=== PATIENT | female | born 1935 | race Caucasian/White ===

== ENCOUNTER 2017-05-23 18:35 | Inpatient (IN) | payer MEDICARE ==
[~2017-05-23] VITALS: Ht 157.5 cm; Wt 100.8 kg
[2017-05-23] MEDS ORDERED: ATOR20TA PO (19:13)
[2017-05-23] MEDS ORDERED: FAMO-39 PO (19:13)
[2017-05-23] MEDS ORDERED: PARO20TA7 PO (19:13)
[2017-05-23] MEDS ORDERED: TRAM50TA2 PO (19:13)
[2017-05-23] MEDS ORDERED: METO-357 (19:13)
[2017-05-23] MEDS ORDERED: GABA-532 (19:13)
[2017-05-23] MEDS ORDERED: SITA100T (19:13)
[2017-05-23] MEDS ORDERED: METF850T2 (19:13)
[2017-05-23] MEDS ORDERED: BISM262O28 (19:13)
[2017-05-23 19:55] LABS: BASOPHILS # (AUTO) 0.1 K/uL (0.0-8.0); BASOPHILS % (AUTO) 0.7 % (0.0-2.0); EOSINOPHILS # (AUTO) 0.3 K/uL (0.0-0.7); EOSINOPHILS % (AUTO) 3.4 % (0.0-7.0); HEMATOCRIT 35.7 % (31.2-41.9); LYMPHOCYTES # (AUTO) 1.9 K/uL (20.0-40.0); LYMPHOCYTES % (AUTO) 19.1 % (20.5-51.5); MEAN CORPUSCULAR HEMOGLOBIN 30.6 uug (24.7-32.8); MEAN CORPUSCULAR HGB CONC 34 g/dL (32.3-35.6); MEAN CORPUSCULAR VOLUME 90.6 fL (75.5-95.3); MONOCYTES # (AUTO) 0.9 K/uL (2.0-10.0); MONOCYTES % (AUTO) 9.5 % (0.0-11.0); NEUTROPHILS # (AUTO) 6.7 K/uL (1.8-8.9); NEUTROPHILS % (AUTO) 67.3 % (38.5-71.5); PLATELET COUNT (AUTO) 234 K/uL (179-408); RED BLOOD CELL COUNT(AUTO) 3.94 MIL/uL (3.63-4.92); WHITE BLOOD COUNT (AUTO) 9.9 K/uL (3.8-11.8)
[2017-05-23 20:04] LABS: CARBON DIOXIDE 30 mmol/L (21-32); CHLORIDE 103 mmol/L (98-107); CREATININE 1.6 mg/dL (0.6-1.3); GLUCOSE 133 mg/dL (74-106); POTASSIUM 4.2 mmol/L (3.5-5.1); UREA NITROGEN, BLOOD 15 mg/dL (7-18)
[2017-05-23 20:10] LABS: ALANINE AMINOTRANSFERASE 17 U/L (14-59); ALKALINE PHOSPHATASE 83 U/L (50-136); ASPARTATE AMINOTRANSFERASE 18 U/L (15-37); BILIRUBIN,DIRECT 0.1 mg/dL (0.0-0.2); BILIRUBIN,TOTAL 0.4 mg/dL (0.2-1.0); TOTAL PROTEIN, SERUM 7.6 g/dL (6.4-8.2)
[2017-05-23 20:11] LABS: ACETAMINOPHEN < 2.0 ug/mL (10-30)
[2017-05-23 20:13] LABS: ETHANOL < 3 MG/DL (0-0)
--- NOTE | 2017-05-23 20:16 | NUR ---
Pt out of ER for CT
[2017-05-23 20:20] LABS: *BILIRUBIN,URIN NEGATIVE (NEGATIVE); *BLOOD, URINE 1+ (NEGATIVE); *CLARITY,URINE CLOUDY (CLEAR); *COLOR,URINE YELLOW (YELLOW); *KETONES,URINE NEGATIVE (NEGATIVE); *PROTEIN,URINE NEGATIVE (NEGATIVE); *UROBILINOGEN,URINE 0.2 E.U./dl (NORMAL); LEUKOCYTE ESTERASE ,URINE TRACE (NEGATIVE); NITRITE, URINE NEGATIVE (NEGATIVE); UGLUCOSE NEGATIVE (NEGATIVE)
[2017-05-23] MEDS ORDERED: FLUCONAZOLE 100 MG TABLET PO ONE (20:30)
--- NOTE | 2017-05-23 20:31 | NUR ---
Pt back to ER from CT
[2017-05-23 20:34] LABS: BACTERIA,URINE FEW /HPF (NONE SEEN); SQUAMOUS EPITHELIAL CELL,UR MANY /HPF (NONE SEEN); URINE AMORPHOUS URATE MODERATE /HPF
[2017-05-23 20:35] LABS: MUCUS,URINE MODERATE /LPF (0-FEW)
[2017-05-23 20:37] LABS: *AMPHETAMINE, URINE NEGATIVE (NEGATIVE); *BARBITURATE, URINE NEGATIVE (NEGATIVE); *CANNABINOID, URINE NEGATIVE (NEGATIVE); *COCCAINE, URINE NEGATIVE (NEGATIVE); *OPIATE, URINE NEGATIVE (NEGATIVE); *PHENCYCLIDINE SCREEN,URINE NEGATIVE (NEGATIVE)
[2017-05-23 21:00] LABS: THYROID STIMULATING HORMONE 2.786 mIU/mL (0.358-3.740)
[2017-05-23] MEDS ORDERED: FLUCONAZOLE 100 MG TABLET ONE (21:19)
[2017-05-23] MEDS ORDERED: IV NORMAL SALINE 1000 ML BAG IV ONE (21:30)
[2017-05-23] MEDS ORDERED: GENTAMICIN SULFATE INJ 80 MG in IV DEXTROSE 5% 100 ML IV ONE (21:30)
[2017-05-23] MEDS ORDERED: LEVOFLOXACIN 500 MG/D5W 100ML PIGGYBACK IV ONE (21:30)
[2017-05-23] MEDS ORDERED: LEVOFLOXACIN 500 MG/D5W 100 ML ONE (21:57)
[2017-05-23] MEDS ORDERED: GENTAMICIN SULFATE 80 MG/2 ML VIAL ONE (21:59)
--- NOTE | 2017-05-23 23:52 | NUR ---
[facility]
[2017-05-24] MEDS ORDERED: hydrALAZINE HCL 25 MG TABLET PO PRN
[2017-05-24] MEDS ORDERED: INSULIN REGULAR, HUMAN 300 UNIT/3 ML VIAL SQ PRN
[2017-05-24] MEDS ORDERED: MORPHINE SULFATE 4 MG/1 ML DISP.SYRIN IV PRN
[2017-05-24] MEDS ORDERED: TEMAZEPAM 15 MG CAPSULE PO PRN
[2017-05-24] MEDS ORDERED: ONDANSETRON 4 MG/2 ML VIAL IV PRN
--- NOTE | 2017-05-24 | NUR ---
Received pt to [facility]. A&O x2. Pt needs extensive 2 person assist to get into bed. Diaper changed. Redness to the groin noted and 2+ bilateral ankle edema noted. Patient offered food and drink as she states she hasn't eaten for hours. Oriented pt to unit and use of call light. Bed locked and in low position with call light within reach. Will continue to monitor.
[2017-05-24] MEDS ORDERED: ZIPRASIDONE MESYLATE 20 MG VIAL IM PRN (00:15)
[2017-05-24] MEDS ORDERED: BISACODYL 10 MG SUPP.RECT RC PRN (00:15)
[2017-05-24 00:30] VITALS: BP 149/54
[2017-05-24 06:00] VITALS: BP 130/54
[2017-05-24 06:44] LABS: BASOPHILS # (AUTO) 0.1 K/uL (0.0-8.0); BASOPHILS % (AUTO) 0.7 % (0.0-2.0); EOSINOPHILS # (AUTO) 0.3 K/uL (0.0-0.7); EOSINOPHILS % (AUTO) 3.6 % (0.0-7.0); HEMATOCRIT 31.5 % (31.2-41.9); HEMOGLOBIN 10.6 g/dL (10.9-14.3); LYMPHOCYTES # (AUTO) 1.4 K/uL (20.0-40.0); LYMPHOCYTES % (AUTO) 16.3 % (20.5-51.5); MEAN CORPUSCULAR HEMOGLOBIN 30.4 uug (24.7-32.8); MEAN CORPUSCULAR HGB CONC 34 g/dL (32.3-35.6); MEAN CORPUSCULAR VOLUME 90.3 fL (75.5-95.3); MONOCYTES # (AUTO) 0.8 K/uL (2.0-10.0); MONOCYTES % (AUTO) 9.1 % (0.0-11.0); NEUTROPHILS # (AUTO) 5.9 K/uL (1.8-8.9); NEUTROPHILS % (AUTO) 70.3 % (38.5-71.5); PLATELET COUNT (AUTO) 207 K/uL (179-408); RED BLOOD CELL COUNT(AUTO) 3.49 MIL/uL (3.63-4.92); WHITE BLOOD COUNT (AUTO) 8.4 K/uL (3.8-11.8)
[2017-05-24] MEDS: BLOOD SUGAR DIAGNOSTIC 1 EACH STRIP VI SCH ×4 (07:30→21:37)
[2017-05-24 08:02] LABS: ALANINE AMINOTRANSFERASE 14 U/L (14-59); ALKALINE PHOSPHATASE 66 U/L (50-136); ASPARTATE AMINOTRANSFERASE 15 U/L (15-37); BILIRUBIN,TOTAL 0.3 mg/dL (0.2-1.0); CARBON DIOXIDE 30 mmol/L (21-32); CHLORIDE 106 mmol/L (98-107); CREATININE 1.5 mg/dL (0.6-1.3); GLUCOSE 175 mg/dL (74-106); MAGNESIUM 1.5 mg/dL (1.8-2.4); PHOSPHOROUS 2.9 mg/dL (2.5-4.9); POTASSIUM 3.8 mmol/L (3.5-5.1); TOTAL PROTEIN, SERUM 6.2 g/dL (6.4-8.2); UREA NITROGEN, BLOOD 14 mg/dL (7-18)
[2017-05-24 08:46] LABS: CHOLESTEROL 104 mg/dL (<200); HDL CHOLESTEROL 34 mg/dL (40-60); TRIGLYCERIDES 117 MG/DL (30-150)
[2017-05-24] MEDS ORDERED: GABAPENTIN 100 MG CAPSULE PO ONE (09:00)
[2017-05-24] MEDS: FAMOTIDINE 20 MG TABLET PO SCH (09:29)
[2017-05-24] MEDS: FUROSEMIDE 20 MG/2 ML VIAL IV SCH (09:29)
[2017-05-24] MEDS: SITAGLIPTIN PHOSPHATE 50 MG TABLET PO SCH (09:30)
[2017-05-24] MEDS: PAROXETINE HCL 20 MG TABLET PO SCH (09:30)
[2017-05-24] MEDS: METOPROLOL TARTRATE 50 MG TABLET PO SCH ×2 (09:35→21:27)
[2017-05-24] MEDS ORDERED: MAGNESIUM SULFATE/D5W 100 ML IV SCH (10:15)
[2017-05-24 11:59] VITALS: BP 110/39
[2017-05-24 12:34] LABS: IRON, SERUM 49 ug/dL (50-175)
[2017-05-24] MEDS: LEVOFLOXACIN 250MG /D5W 250 MG in PREMIXED 1 EACH IV SCH (14:37)
[2017-05-24] MEDS ORDERED: DEXTROSE 50% 50 ML DISP.SYRIN IV PRN ×2 (15:00)
[2017-05-24 15:33] VITALS: BP 128/41
[2017-05-24] MEDS: GABAPENTIN 100 MG CAPSULE PO SCH (17:22)
--- NOTE | 2017-05-24 18:41 | NUR ---
PATIENT ALERT AND ORIENTED. BEDREST AND OBESE. SHE ABLE TO FOLLOW THE INSTRUCTION. SHE HAS REDNESS IN GROIN PERINEAL AREA CREAM APPLIED. BOTH LEG ELEVATED WITH PILLOW WITH BOTH LOWER LEG EDEMA +2. NO SIGN OF RESPIRATORY DISORDER. CONTINUE TO MONITOR.
--- NOTE | 2017-05-24 19:30 | NUR ---
PT RECEIVED IN BED, ASLEEP. WAKES TO NAME. A/OX2. ABLE TO MAKE NEEDS KNOWN. V/S STABLE. IN NO ACUTE DISTRESS. NO C/O PAIN AT THIS TIME. IV INTACT AND PATENT. ON 2LNC, TOLERATING WELL. LOWER EXTREMITIES ELEVATED, OFFLOADING BILATERAL HEELS. AFEBRILE. HOB ELEVATED. SAFETY MEASURES IMPLEMENTED. CALL LIGHT WITHIN REACH.
[2017-05-24 20:00] VITALS: BP 132/55
[2017-05-24] MEDS ORDERED: DOCUSATE SODIUM 250 MG CAPSULE PO SCH (21:00)
[2017-05-24] MEDS: ATORVASTATIN 20 MG TABLET PO SCH (21:26)
[2017-05-24] MEDS: TRAZODONE 50 MG TABLET PO SCH (21:26)
[2017-05-24] MEDS: INSULIN REGULAR, HUMAN 300 UNITS/3 ML VIAL SQ PRN (21:39)
[2017-05-25 04:00] VITALS: BP 131/61
--- NOTE | 2017-05-25 05:45 | NUR ---
END OF SHIFT NOTES. PT SLEPT WELL THROUGHOUT SHIFT. IN STABLE CONDITION. IV CONT TO BE INTACT AND PATENT, HEP-LOCKED. BILATERAL LOWER EXTREMITIES ELEVATED ON PILLOW. BLOOD GLUCOSE CONTROLLED. TOLERATED RA WELL.HOB ELEVATED.ALL NEEDS ATTENDED.SAFETY MAINTAINED. CALL LIGHT WITHIN REACH.
[2017-05-25] MEDS: BLOOD SUGAR DIAGNOSTIC 1 EACH STRIP VI SCH ×4 (06:15→21:10)
[2017-05-25 07:19] LABS: ALANINE AMINOTRANSFERASE 16 U/L (14-59); ALKALINE PHOSPHATASE 66 U/L (50-136); ASPARTATE AMINOTRANSFERASE 19 U/L (15-37); BILIRUBIN,TOTAL 0.3 mg/dL (0.2-1.0); CARBON DIOXIDE 33 mmol/L (21-32); CHLORIDE 106 mmol/L (98-107); CREATININE 1.4 mg/dL (0.6-1.3); GLUCOSE 113 mg/dL (74-106); MAGNESIUM 1.8 mg/dL (1.8-2.4); PHOSPHOROUS 3.9 mg/dL (2.5-4.9); POTASSIUM 3.9 mmol/L (3.5-5.1); TOTAL PROTEIN, SERUM 6.5 g/dL (6.4-8.2); UREA NITROGEN, BLOOD 13 mg/dL (7-18)
[2017-05-25 07:48] LABS: BASOPHILS # (AUTO) 0.1 K/uL (0.0-8.0); BASOPHILS % (AUTO) 0.9 % (0.0-2.0); EOSINOPHILS # (AUTO) 0.3 K/uL (0.0-0.7); EOSINOPHILS % (AUTO) 3.6 % (0.0-7.0); HEMATOCRIT 33.2 % (31.2-41.9); HEMOGLOBIN 11.1 g/dL (10.9-14.3); LYMPHOCYTES % (AUTO) 24.9 % (20.5-51.5); MEAN CORPUSCULAR HEMOGLOBIN 30.4 uug (24.7-32.8); MEAN CORPUSCULAR HGB CONC 34 g/dL (32.3-35.6); MEAN CORPUSCULAR VOLUME 90.9 fL (75.5-95.3); MONOCYTES # (AUTO) 0.8 K/uL (2.0-10.0); MONOCYTES % (AUTO) 9.4 % (0.0-11.0); NEUTROPHILS % (AUTO) 61.2 % (38.5-71.5); PLATELET COUNT (AUTO) 199 K/uL (179-408); RED BLOOD CELL COUNT(AUTO) 3.65 MIL/uL (3.63-4.92); WHITE BLOOD COUNT (AUTO) 8.1 K/uL (3.8-11.8)
[2017-05-25] MEDS: GABAPENTIN 100 MG CAPSULE PO SCH ×3 (09:20→17:04)
[2017-05-25] MEDS: FAMOTIDINE 20 MG TABLET PO SCH (09:20)
[2017-05-25] MEDS: SITAGLIPTIN PHOSPHATE 50 MG TABLET PO SCH (09:21)
[2017-05-25] MEDS: PAROXETINE HCL 20 MG TABLET PO SCH (09:21)
[2017-05-25] MEDS: FUROSEMIDE 20 MG/2 ML VIAL IV SCH (09:21)
[2017-05-25] MEDS: LEVOFLOXACIN 250MG /D5W 250 MG in PREMIXED 1 EACH IV SCH (09:21)
[2017-05-25] MEDS: METOPROLOL TARTRATE 50 MG TABLET PO SCH ×2 (09:21→20:17)
[2017-05-25 11:04] VITALS: BP 104/40
[2017-05-25] MEDS: INSULIN REGULAR, HUMAN 300 UNITS/3 ML VIAL SQ PRN ×2 (11:52→21:11)
--- NOTE | 2017-05-25 13:42 | NUR ---
PT IS LETHARGIC AND UNABLE TO TAKE MEDICATIONS AT THIS TIME. CONTINUE TO MONITOR PT.
[2017-05-25 13:58] LABS: *BILIRUBIN,URIN NEGATIVE (NEGATIVE); *BLOOD, URINE Trace-intact (NEGATIVE); *CLARITY,URINE CLEAR (CLEAR); *COLOR,URINE LIGHT YELLOW (YELLOW); *KETONES,URINE NEGATIVE (NEGATIVE); *PROTEIN,URINE NEGATIVE (NEGATIVE); *URINE TOTAL PROTEIN RANDOM 7.1 mg/dL (<150/24HR); *UROBILINOGEN,URINE 0.2 E.U./dl (NORMAL); LEUKOCYTE ESTERASE ,URINE NEGATIVE (NEGATIVE); NITRITE, URINE NEGATIVE (NEGATIVE); PH,URINE 5.5 (5.0-8.0); UGLUCOSE NEGATIVE (NEGATIVE)
[2017-05-25 14:09] LABS: *CREATININE,URINE < 13.0 mg/dL (30-125)
[2017-05-25 14:11] LABS: BACTERIA,URINE FEW /HPF (NONE SEEN); RBC,URINE 0-3 /HPF (0-3); SQUAMOUS EPITHELIAL CELL,UR MODERATE /HPF (NONE SEEN); WBC,URINE 0-3 /HPF (0-3)
[2017-05-25] MEDS ORDERED: TEMAZEPAM 7.5 MG CAPSULE PO PRN (14:30)
[2017-05-25 15:03] VITALS: BP 95/49
--- NOTE | 2017-05-25 18:11 | NUR ---
PT IS AOX2, DURING THE BEGINNING OF SHIFT PT WAS AOX4. PT BECOMES CONFUSED NEAR THE END OF THE DAY. PT LAST BLOOD SUGAR WAS 101, NO COVERAGE NEEDED. PT IS COMPLIANT WITH MEDS AND CARE. BED AT LOWEST LOCKED POSITION. PT ENCOURAGED TO USE CALL LIGHT WHEN SHE NEEDS TO AMBULATE AND GO TO THE REST ROOM. PT IS AGREEABLE WITH REQUEST. IV INTACT, NO SIGNS OF RESPIRATORY DISTRESS. CONTINUE TO MONITOR PATIENT.
--- NOTE | 2017-05-25 19:20 | NUR ---
RECEIVED PT AWAKE, ALERT , ORIENTED X2. PT IV INTACT AND PATENT. PT TRYING TO GET OUT OF THE BED. REORIENT THE PT THAT SHE IS IN THE HOSPITAL . PT AWARE OF IT. PT SHOWS NO SIGNS OF DISTRESS. WILL CONTINUE TO MONITOR.
[2017-05-25 20:00] VITALS: BP 100/44
[2017-05-25] MEDS: TRAZODONE 50 MG TABLET PO SCH (20:07)
[2017-05-25] MEDS: DOCUSATE SODIUM 250 MG CAPSULE PO SCH (20:07)
[2017-05-25] MEDS: ATORVASTATIN 20 MG TABLET PO SCH (20:15)
--- NOTE | 2017-05-25 21:30 | NUR ---
PT CALLED HIS SON. TALKED WITH HIS SON AND GAVE UPDATE TO HER MOTHER'S CONDITION. HER SON REQUEST THAT HER MOTHER WILL BE SEEN AGAIN BY THE PSYCHIATRIST. PT BLOOD SUGAR LEVEL IS 136 GAVE 2 UNITS OF INSULIN. PT ALERT, ORIENTEDX4. GAVE MEDICATION TO PT. PT TOLERATED IT WELL.GAVE URINE SAMPLE TO THE LAB. WILL CONTINUE TO MONITOR.
--- NOTE | 2017-05-25 21:31 | NUR ---
LOPRESSOR MEDICATION WAS NOT ADMINISTERED BECAUSE BLOOD PRESSURE WAS 100/44. OTHER MEDICATION GIVEN. PT TOLERATED IT WELL. WILL CONTINUE TO MONITOR.
--- NOTE | 2017-05-25 23:07 | NUR ---
GAVE SNACK TO PT. PT ATE THE CRACKER AND DRANK THE MILK. WILL CONTINUE TO MONITOR.
[2017-05-26] MEDS: BLOOD SUGAR DIAGNOSTIC 1 EACH STRIP VI SCH ×4 (06:42→20:31)
[2017-05-26 06:43] LABS: BASOPHILS # (AUTO) 0.1 K/uL (0.0-8.0); BASOPHILS % (AUTO) 0.9 % (0.0-2.0); EOSINOPHILS # (AUTO) 0.3 K/uL (0.0-0.7); EOSINOPHILS % (AUTO) 4.3 % (0.0-7.0); HEMATOCRIT 33.6 % (31.2-41.9); HEMOGLOBIN 11.1 g/dL (10.9-14.3); LYMPHOCYTES # (AUTO) 1.8 K/uL (20.0-40.0); LYMPHOCYTES % (AUTO) 22.6 % (20.5-51.5); MEAN CORPUSCULAR HEMOGLOBIN 30.3 uug (24.7-32.8); MEAN CORPUSCULAR HGB CONC 33 g/dL (32.3-35.6); MEAN CORPUSCULAR VOLUME 91.4 fL (75.5-95.3); MONOCYTES # (AUTO) 0.8 K/uL (2.0-10.0); MONOCYTES % (AUTO) 9.7 % (0.0-11.0); NEUTROPHILS # (AUTO) 4.9 K/uL (1.8-8.9); NEUTROPHILS % (AUTO) 62.5 % (38.5-71.5); PLATELET COUNT (AUTO) 219 K/uL (179-408); RED BLOOD CELL COUNT(AUTO) 3.67 MIL/uL (3.63-4.92); WHITE BLOOD COUNT (AUTO) 7.8 K/uL (3.8-11.8)
--- NOTE | 2017-05-26 06:47 | NUR ---
PT SLEPT THROUGHOUT THE SHIFT. PT SHOWS NO SIGNS OF DISTRESS. PT IV INTACT AND PATENT.ALL PRESCRIBED MEDICATION GIVEN. PT TOLERATED IT WELL. SAFETY AND COMFORT PROVIDED. CONTINUE CARE OF PLAN. WILL ENDORSE TO DAYSHIFT NURSE.
[2017-05-26 06:50] VITALS: BP 128/39
--- NOTE | 2017-05-26 06:50 | NUR ---
WILL NEED TO FOLLOWUP ON THE CODE STATUS OF THE PT TO [facility]. WILL ENDORSE TO DAYSHIFT NURSE.
[2017-05-26 07:41] LABS: ALANINE AMINOTRANSFERASE 18 U/L (14-59); ALKALINE PHOSPHATASE 66 U/L (50-136); ASPARTATE AMINOTRANSFERASE 20 U/L (15-37); BILIRUBIN,TOTAL 0.3 mg/dL (0.2-1.0); CARBON DIOXIDE 33 mmol/L (21-32); CHLORIDE 103 mmol/L (98-107); CREATINE KINASE, TOTAL 33 U/L (26-192); CREATININE 1.3 mg/dL (0.6-1.3); GLUCOSE 120 mg/dL (74-106); MAGNESIUM 1.7 mg/dL (1.8-2.4); PHOSPHOROUS 3.8 mg/dL (2.5-4.9); POTASSIUM 3.6 mmol/L (3.5-5.1); TOTAL PROTEIN, SERUM 6.7 g/dL (6.4-8.2)
--- NOTE | 2017-05-26 08:00 | NUR ---
AWAKE COOPERATE WELL NO ACUTE DISTRESS NO PAIN ON ASPIRATION AND FALL PRECAUTION BED ALARM ON AND CALL LIGHT IN REACH
[2017-05-26 08:15] LABS: UREA NITROGEN, BLOOD 16 mg/dL (7-18)
[2017-05-26] MEDS: GABAPENTIN 100 MG CAPSULE PO SCH ×3 (08:40→16:59)
[2017-05-26] MEDS: ACETAMINOPHEN 325 MG TABLET PO PRN (08:40)
[2017-05-26] MEDS: SITAGLIPTIN PHOSPHATE 50 MG TABLET PO SCH (08:40)
[2017-05-26] MEDS: PAROXETINE HCL 20 MG TABLET PO SCH (08:40)
[2017-05-26] MEDS: FAMOTIDINE 20 MG TABLET PO SCH (08:40)
[2017-05-26] MEDS: METOPROLOL TARTRATE 50 MG TABLET PO SCH ×2 (08:40→20:31)
[2017-05-26] MEDS: LEVOFLOXACIN 250MG /D5W 250 MG in PREMIXED 1 EACH IV SCH (08:41)
--- NOTE | 2017-05-26 10:00 | NUR ---
DR CONNOR AND AN THOMASON,A SEEN PATIENT AND LAB RESULT THIS AM NEW MEDICATION WAS ORDER URINE C&S WAS VRE+ PUT PATIENT ON CONTACT ISOLATION AND WAS NOTIFY
[2017-05-26] MEDS ORDERED: MAGNESIUM SULFATE/D5W 100 ML IV SCH ×2 (11:00→12:00)
--- NOTE | 2017-05-26 11:00 | NUR ---
C/O OF CONSTIPATION MATTRESS PACKER Elizabeth THOMASON WAS NOTIFY AND MEDICATION PRN FOR CONSTIPATION GIVEN ORDER
[2017-05-26 11:20] VITALS: BP 105/43
[2017-05-26] MEDS ORDERED: MAGNESIUM HYDROXIDE 30 ML LIQUID UDC PO PRN (11:45)
[2017-05-26] MEDS: NITROFURANTOIN/NITROFURAN MAC 100 MG CAPSULE PO SCH ×2 (11:53→20:18)
[2017-05-26] MEDS: INSULIN REGULAR, HUMAN 300 UNIT/3 ML VIAL SQ PRN ×2 (11:56→16:48)
[2017-05-26] MEDS: DOCUSATE SODIUM 100 MG CAPSULE PO SCH ×2 (11:59→20:19)
--- NOTE | 2017-05-26 13:00 | NUR ---
EAT LUNCH WELL FAMILY SON AT BEDSIDE NO HALLUCIANATION OR AGITATION AT THIS TIME
[2017-05-26 15:07] VITALS: BP 107/47
--- NOTE | 2017-05-26 16:45 | NUR ---
NO BM TODAY AFTER MOM GIVEN DULCOLAX SUPP GIVEN AT THIS TIME KYLEE PROCEDURE WELL
--- NOTE | 2017-05-26 17:45 | NUR ---
HEMODYNAMIC STATUS STABLE NO ACUTE DISTRESS PAIN UNDER CONTROL SAFETY MEASURE PROVIDED CALL LIGHT IN REACH
--- NOTE | 2017-05-26 19:15 | NUR ---
Received pt awake, alert and orientedx3. Pt shows no signs of distress. Pt iv intact and patent. Call light within reach. Pt on contact isolation for VRE. The code status of the pt still need to confirm with [facility]. Will continue to monitor.
[2017-05-26 20:11] LABS: *OCCULT BLOOD STOOL NEGATIVE (NEGATIVE)
[2017-05-26] MEDS: DOCUSATE SODIUM 250 MG CAPSULE PO SCH (20:18)
[2017-05-26] MEDS: TRAZODONE 50 MG TABLET PO SCH (20:18)
[2017-05-26] MEDS: INSULIN REGULAR, HUMAN 300 UNITS/3 ML VIAL SQ PRN (20:28)
[2017-05-26] MEDS: ATORVASTATIN 20 MG TABLET PO SCH (20:40)
[2017-05-26] MEDS: Z GUARD REMEDY PASTE 57 GM TUBE TOP SCH (20:41)
[2017-05-26 20:55] VITALS: BP 146/90
[2017-05-27 04:00] VITALS: BP 130/73
--- NOTE | 2017-05-27 06:40 | NUR ---
PT SLEPT THROUGHOUT THE SHIFT. PT SHOWS NO SIGNS OF DISTRESS. PT IV AND INTACT AND PATENT. ALL MEDICATION GIVEN. PT TOLERATED IT WELL. CALL LIGHT WITHIN REACH. SAFETY AND COMFORT PROVIDED. CONTINUE CARE OF PLAN.WILL ENDORSE TO DAYSHIFT NURSE.
[2017-05-27] MEDS: BLOOD SUGAR DIAGNOSTIC 1 EACH STRIP VI SCH ×4 (06:43→21:04)
[2017-05-27 07:07] LABS: BASOPHILS # (AUTO) 0.1 K/uL (0.0-8.0); BASOPHILS % (AUTO) 0.7 % (0.0-2.0); EOSINOPHILS # (AUTO) 0.4 K/uL (0.0-0.7); EOSINOPHILS % (AUTO) 4.9 % (0.0-7.0); HEMATOCRIT 32.7 % (31.2-41.9); HEMOGLOBIN 10.9 g/dL (10.9-14.3); LYMPHOCYTES # (AUTO) 1.8 K/uL (20.0-40.0); LYMPHOCYTES % (AUTO) 23.1 % (20.5-51.5); MEAN CORPUSCULAR HEMOGLOBIN 30.4 uug (24.7-32.8); MEAN CORPUSCULAR HGB CONC 33 g/dL (32.3-35.6); MEAN CORPUSCULAR VOLUME 91.2 fL (75.5-95.3); MONOCYTES # (AUTO) 0.8 K/uL (2.0-10.0); MONOCYTES % (AUTO) 10.2 % (0.0-11.0); NEUTROPHILS # (AUTO) 4.9 K/uL (1.8-8.9); NEUTROPHILS % (AUTO) 61.1 % (38.5-71.5); PLATELET COUNT (AUTO) 214 K/uL (179-408); RED BLOOD CELL COUNT(AUTO) 3.59 MIL/uL (3.63-4.92)
[2017-05-27 07:34] LABS: ALANINE AMINOTRANSFERASE 15 U/L (14-59); ALKALINE PHOSPHATASE 61 U/L (50-136); ASPARTATE AMINOTRANSFERASE 18 U/L (15-37); BILIRUBIN,TOTAL 0.2 mg/dL (0.2-1.0); CARBON DIOXIDE 33 mmol/L (21-32); CHLORIDE 107 mmol/L (98-107); CREATININE 1.4 mg/dL (0.6-1.3); GLUCOSE 113 mg/dL (74-106); PHOSPHOROUS 3.9 mg/dL (2.5-4.9); POTASSIUM 4.1 mmol/L (3.5-5.1); TOTAL PROTEIN, SERUM 6.2 g/dL (6.4-8.2); UREA NITROGEN, BLOOD 16 mg/dL (7-18)
--- NOTE | 2017-05-27 08:00 | NUR ---
AWAKE COOPERATE SOME FORGETFUL BUT ABLE TO FOLLOW SIMPLE DIRECTION WELL NO ACUTE DISTRESS NO PAIN ON FALL AND ASPIRATION PRECAUTION BED ALARM ON AND CALL LIGHT IN REACH
[2017-05-27] MEDS: Z GUARD REMEDY PASTE 57 GM TUBE TOP SCH ×2 (08:36→21:03)
[2017-05-27] MEDS: GABAPENTIN 100 MG CAPSULE PO SCH ×3 (08:37→17:06)
[2017-05-27] MEDS: METOPROLOL TARTRATE 50 MG TABLET PO SCH ×2 (08:37→20:59)
[2017-05-27] MEDS: NITROFURANTOIN/NITROFURAN MAC 100 MG CAPSULE PO SCH ×2 (08:37→20:59)
[2017-05-27] MEDS: PAROXETINE HCL 20 MG TABLET PO SCH (08:37)
[2017-05-27] MEDS: ACETAMINOPHEN 325 MG TABLET PO PRN (08:37)
[2017-05-27] MEDS: FAMOTIDINE 20 MG TABLET PO SCH (08:37)
[2017-05-27] MEDS: DOCUSATE SODIUM 100 MG CAPSULE PO SCH ×2 (08:37→20:59)
[2017-05-27] MEDS: SITAGLIPTIN PHOSPHATE 50 MG TABLET PO SCH (08:39)
--- NOTE | 2017-05-27 10:00 | NUR ---
DR CONNOR AND AN THOMASON,A SEEN PATIENT AND LAB RESULT NO NEW ORDER
[2017-05-27 11:38] VITALS: BP 109/43
[2017-05-27] MEDS: INSULIN REGULAR, HUMAN 300 UNIT/3 ML VIAL SQ PRN ×2 (12:41→17:09)
[2017-05-27 15:38] VITALS: BP 138/55
--- NOTE | 2017-05-27 15:45 | NUR ---
CRISIS TEAM CAME TO [place] REGARDING PATIENT SON REQUEST AND PUT PATIENT ON 72 HR HOLD START TODAY AT 1605PM
--- NOTE | 2017-05-27 17:30 | NUR ---
RESTING QUIET NO HALLUCIANATION OR AGITATION COOPERATE WELL NO ACUTE DISTRESS PAIN UNDER CONTROL SAFETY MEASURE PROVIDED CALL LIGHT IN REACH AND BED ALARM ON
[2017-05-27 20:00] VITALS: BP 125/55
--- NOTE | 2017-05-27 20:00 | NUR ---
RECEIVED PATIENT AWAKE IN BED, SHE'S AOX2 WITH CONFUSION. SHE DENIES PAIN OR ANY DISCOMFORT, NO RESPIRATORY DISTRESS. SHE DENIES ANY SUICIDAL THOUGHTS OR ANY HALLUCINATIONS AT PRESENT. SEATER REMAINS AT BEDSIDE WITH CLOSE MONITORING, SAFETY MEASURES IN PLACE
[2017-05-27] MEDS: TRAZODONE 50 MG TABLET PO SCH (20:58)
[2017-05-27] MEDS: ATORVASTATIN 20 MG TABLET PO SCH (20:59)
[2017-05-28 04:00] VITALS: BP 143/62
[2017-05-28 04:15] VITALS: BP 139/63
--- NOTE | 2017-05-28 06:18 | NUR ---
PATIENT SLEPT WELL THROUGH THE SHIFT, NO C/O PAIN OR ANY DISTRESS. DENIED SUICIDAL THOUGHTS OR HEARING HALLUCINATIONS ON THIS SHIFT. PATIENT WITH CONFUSION BUT ABLE TO REDIRECT. SEATER REMAINS AT BEDSIDE. SAFETY MEASURES MAINTAINED AT ALL TIMES
[2017-05-28] MEDS: BLOOD SUGAR DIAGNOSTIC 1 EACH STRIP VI SCH ×3 (06:31→16:25)
[2017-05-28 06:37] LABS: BASOPHILS # (AUTO) 0.1 K/uL (0.0-8.0); BASOPHILS % (AUTO) 0.7 % (0.0-2.0); EOSINOPHILS # (AUTO) 0.3 K/uL (0.0-0.7); EOSINOPHILS % (AUTO) 4.1 % (0.0-7.0); HEMATOCRIT 32.1 % (31.2-41.9); HEMOGLOBIN 10.6 g/dL (10.9-14.3); LYMPHOCYTES # (AUTO) 1.5 K/uL (20.0-40.0); LYMPHOCYTES % (AUTO) 19.3 % (20.5-51.5); MEAN CORPUSCULAR HEMOGLOBIN 30.2 uug (24.7-32.8); MEAN CORPUSCULAR HGB CONC 33 g/dL (32.3-35.6); MEAN CORPUSCULAR VOLUME 91.2 fL (75.5-95.3); MONOCYTES # (AUTO) 0.6 K/uL (2.0-10.0); MONOCYTES % (AUTO) 7.9 % (0.0-11.0); NEUTROPHILS # (AUTO) 5.2 K/uL (1.8-8.9); PLATELET COUNT (AUTO) 215 K/uL (179-408); RED BLOOD CELL COUNT(AUTO) 3.52 MIL/uL (3.63-4.92); WHITE BLOOD COUNT (AUTO) 7.7 K/uL (3.8-11.8)
[2017-05-28 06:44] VITALS: BP 143/62
[2017-05-28 06:53] LABS: ALANINE AMINOTRANSFERASE 16 U/L (14-59); ALKALINE PHOSPHATASE 60 U/L (50-136); ASPARTATE AMINOTRANSFERASE 18 U/L (15-37); BILIRUBIN,TOTAL 0.2 mg/dL (0.2-1.0); CARBON DIOXIDE 29 mmol/L (21-32); CHLORIDE 104 mmol/L (98-107); CREATININE 1.5 mg/dL (0.6-1.3); GLUCOSE 179 mg/dL (74-106); PHOSPHOROUS 3.2 mg/dL (2.5-4.9); POTASSIUM 3.7 mmol/L (3.5-5.1); UREA NITROGEN, BLOOD 18 mg/dL (7-18)
[2017-05-28] MEDS: INSULIN REGULAR, HUMAN 300 UNIT/3 ML VIAL SQ PRN ×3 (08:07→16:24)
[2017-05-28] MEDS: PAROXETINE HCL 20 MG TABLET PO SCH (08:08)
[2017-05-28] MEDS: DOCUSATE SODIUM 100 MG CAPSULE PO SCH (08:08)
[2017-05-28] MEDS: GABAPENTIN 100 MG CAPSULE PO SCH ×3 (08:08→16:12)
[2017-05-28] MEDS: NITROFURANTOIN/NITROFURAN MAC 100 MG CAPSULE PO SCH (08:08)
[2017-05-28] MEDS: FAMOTIDINE 20 MG TABLET PO SCH (08:08)
[2017-05-28] MEDS: METOPROLOL TARTRATE 50 MG TABLET PO SCH (08:09)
[2017-05-28] MEDS: SITAGLIPTIN PHOSPHATE 50 MG TABLET PO SCH (08:09)
--- NOTE | 2017-05-28 08:15 | NUR ---
RECEIVED PATIENT IN BED AWAKE ALERT AND VERBALLY RESPONSIVE PATIENT IS FEEDING SELF AT THIS TIME.DENIES PAIN DISCOMFORTS DENIES SUICIDAL IDEATION COMPLIANT WITH MEDICATIONS AND CARE AND WILL CONTINUE TO OBSERVE.
--- NOTE | 2017-05-28 08:50 | NUR ---
DR SOUSA HERE TO SEE PATIENT WITH NEW ORDERS AND NOTED.
[2017-05-28] MEDS: Z GUARD REMEDY PASTE 57 GM TUBE TOP SCH (09:18)
[2017-05-28 13:07] LABS: A/G RATIO 0.9 (0.7-1.7); ALBUMIN 2.7 g/dL (2.9-4.4); ALPHA-1-GLOBULIN 0.2 g/dL (0.0-0.4); BETA GLOBULIN 0.8 g/dL (0.7-1.3); GAMMA GLOBULIN 1.1 g/dL (0.4-1.8); GLOBULIN, TOTAL 3.1 g/dL (2.2-3.9); M-SPIKE 0.4 g/dL (Not Observed)
[2017-05-28] MEDS ORDERED: METO50TA16 PO (13:49)
[2017-05-28] MEDS ORDERED: SITA50TA PO (13:49)
[2017-05-28] MEDS ORDERED: GABA-532 PO (13:49)
[2017-05-28] MEDS ORDERED: PARO20TA7 PO (13:49)
[2017-05-28] MEDS ORDERED: INSU100V28 SQ ×2 (13:49)
[2017-05-28] MEDS ORDERED: MAGN400O6 PO (13:49)
[2017-05-28] MEDS ORDERED: HYDR25TA86 PO (13:49)
[2017-05-28] MEDS ORDERED: DOCU100C36 PO (13:49)
[2017-05-28] MEDS ORDERED: ZIPR20VI IM (13:49)
[2017-05-28] MEDS ORDERED: FAMO20TA8 PO (13:49)
[2017-05-28] MEDS ORDERED: ACET325T53 PO (13:49)
[2017-05-28] MEDS ORDERED: Blood Sugar Diagnostic VI (13:49)
[2017-05-28] MEDS ORDERED: BISA10SU12 RC (13:49)
[2017-05-28] MEDS ORDERED: NITR100C11 PO (13:49)
[2017-05-28] MEDS ORDERED: QUET25TA PO (13:49)
[2017-05-28] MEDS ORDERED: MAGNESIUM SULFATE/D5W 100 ML IV SCH (14:00)
--- NOTE | 2017-05-28 14:00 | NUR ---
ORDER TO DISCHARGE PATIENT FROM THE [facility] TO [facility] NOTED AND CARRIED OUT AND PER THE RIP MACHINE OPERATOR PATIENT WILL BE FOLLOWED BY DR ALCALA DUE TO INSURANCE PURPOSES.
--- NOTE | 2017-05-28 15:00 | NUR ---
CALLED DR CHAMBERS OFFICE SPOKE WITH HIM RE PATIENT WILL BE MHU OVER FOLW HERE UNDER HIS CARE BUT HE STATED THAT DR GARCIA IS COVERING FOR HIM UNTIL NEXT WEEK.
[2017-05-28 15:10] VITALS: BP 106/45
--- NOTE | 2017-05-28 16:30 | NUR ---
DR GARCIA HERE AND SEEN PATIENT WITH NEW ORDERS AND NOTED.
--- NOTE | 2017-05-28 16:35 | NUR ---
SPOKE WITH PATIENTS JENN POND PATIENT BEING DISCHARGED TO [facility] OVER FLOW WILL STAY IN SAME ROOM AND HE EXPRESSED UNDERSTANDING.PATIENT REFUSED TO SIGN THE DISCHARGE PAPER WORK
[2017-05-28] MEDS ORDERED: ATOR20TA PO (18:24)
[2017-05-28] MEDS ORDERED: PETR113P TP (18:28)
[2017-05-28] MEDS ORDERED: QUETIAPINE FUMARATE 25 MG TABLET PO SCH (21:00)
== END 2017-05-28 16:45 | DRG 682 ==
LOC: ER 18:38 → MED 05-24
PROVIDERS: ADMIT Internal Medicine; ATTEND Internal Medicine
DX: N17.0 Acute kidney failure with tubular necrosis (principal); E43 Unspecified severe protein-calorie malnutrition; G93.40 Encephalopathy, unspecified; N39.0 Urinary tract infection, site not specified; E11.22 Type 2 diabetes mellitus with diabetic chronic kidney disease; L03.115 Cellulitis of right lower limb; E66.01 Morbid (severe) obesity due to excess calories; I13.0 Hypertensive heart and chronic kidney disease with heart failure and stage 1 through stage 4 chronic kidney disease, or unspecified chronic kidney disease; I50.32 Chronic diastolic (congestive) heart failure; E11.65 Type 2 diabetes mellitus with hyperglycemia; E86.9 Volume depletion, unspecified; L03.116 Cellulitis of left lower limb; Z68.41 Body mass index [BMI] 40.0-44.9, adult; F31.5 Bipolar disorder, current episode depressed, severe, with psychotic features; E83.42 Hypomagnesemia; B95.2 Enterococcus as the cause of diseases classified elsewhere; Z16.21 Resistance to vancomycin; Z71.3 Dietary counseling and surveillance; Z79.84 Long term (current) use of oral hypoglycemic drugs; D64.9 Anemia, unspecified; Z87.01 Personal history of pneumonia (recurrent); Z87.891 Personal history of nicotine dependence; Z90.49 Acquired absence of other specified parts of digestive tract; N18.9 Chronic kidney disease, unspecified; G31.84 Mild cognitive impairment of uncertain or unknown etiology; M89.9 Disorder of bone, unspecified; K59.00 Constipation, unspecified; E78.5 Hyperlipidemia, unspecified; L72.0 Epidermal cyst; M17.11 Unilateral primary osteoarthritis, right knee; F41.9 Anxiety disorder, unspecified
CPT/HCPCS: 36415; 70030-TC; 70450; 71045; 80307; 83550; 83605; 83735; 83970; 84100; 84155; 84156; 84165; 84300; 84443; 85025; 85730; 87040; 87077; 87086; 93005; 93307; 97110; 97116; 97530; A4663; C1758; G0480; G0480-TC; J1580; J1815; J1940; J1956; J3475; J7030; J7050

== ENCOUNTER 2017-05-28 17:43 | Inpatient (IN) | payer MEDICARE, OTHER ==
[~2017-05-28] VITALS: Ht 157.5 cm; Wt 93.0 kg
[~2017-05-28 17:43] MED LIST: ACET325T53 PO; ATOR20TA PO; BISA10SU12 RC; BISM262O28; Blood Sugar Diagnostic VI; DOCU100C36 PO; FAMO-39 PO; FAMO20TA8 PO; GABA-532; GABA-532 PO; HYDR25TA86 PO; INSU100V28 SQ; MAGN400O6 PO; METF850T2; METO-357; METO50TA16 PO; NITR100C11 PO; PARO20TA7 PO; QUET25TA PO; SITA100T; SITA50TA PO; TRAM50TA2 PO; ZIPR20VI IM
[2017-05-28] MEDS ORDERED: ATOR20TA PO (18:24)
[2017-05-28] MEDS ORDERED: PETR113P TP (18:28)
[2017-05-28] MEDS ORDERED: MAG HYDROX/AL HYDROX/SIMETH 30 ML LIQUID UDC PO PRN (18:30)
[2017-05-28] MEDS ORDERED: ACETAMINOPHEN 325 MG TABLET PO PRN ×2 (18:30→22:00)
[2017-05-28] MEDS ORDERED: TEMAZEPAM 7.5 MG CAPSULE PO PRN (18:30)
[2017-05-28] MEDS ORDERED: CLONAZEPAM 0.5 MG TABLET PO SCH (18:30)
[2017-05-28] MEDS ORDERED: MAGNESIUM HYDROXIDE 30 ML LIQUID UDC PO PRN ×2 (18:30→22:00)
[2017-05-28 20:00] VITALS: BP 116/53
[2017-05-28] MEDS: QUETIAPINE FUMARATE 25 MG TABLET PO SCH (20:49)
[2017-05-28] MEDS ORDERED: BISACODYL 10 MG SUPP.RECT RC PRN (22:00)
[2017-05-28] MEDS ORDERED: DEXTROSE 50% 50 ML DISP.SYRIN IV PRN (22:00)
[2017-05-28] MEDS ORDERED: INSULIN REGULAR, HUMAN 300 UNIT/3 ML VIAL SQ PRN ×2 (22:00)
[2017-05-28] MEDS ORDERED: hydrALAZINE HCL 25 MG TABLET PO PRN (22:00)
[2017-05-29] MEDS: BLOOD SUGAR DIAGNOSTIC 1 EACH STRIP VI SCH ×4 (06:36→20:50)
[2017-05-29] MEDS: PAROXETINE HCL 20 MG TABLET PO SCH (08:27)
[2017-05-29] MEDS: NITROFURANTOIN/NITROFURAN MAC 100 MG CAPSULE PO SCH ×2 (08:27→20:13)
[2017-05-29] MEDS: GABAPENTIN 100 MG CAPSULE PO SCH ×3 (08:27→17:16)
[2017-05-29] MEDS: LINAGLIPTIN 5 MG TABLET PO SCH (08:27)
[2017-05-29] MEDS: DOCUSATE SODIUM 100 MG CAPSULE PO SCH ×2 (08:28→20:13)
[2017-05-29] MEDS: FAMOTIDINE 20 MG TABLET PO SCH (08:28)
[2017-05-29] MEDS: METOPROLOL TARTRATE 50 MG TABLET PO SCH ×2 (08:28→20:20)
[2017-05-29 08:37] VITALS: BP 146/61
[2017-05-29] MEDS: Z GUARD REMEDY PASTE 57 GM TUBE TOP SCH ×2 (08:53→20:14)
[2017-05-29] MEDS ORDERED: SITAGLIPTIN PHOSPHATE 50 MG TABLET PO SCH (09:00)
[2017-05-29] MEDS: INSULIN REGULAR, HUMAN 300 UNIT/3 ML VIAL SQ PRN (11:17)
[2017-05-29 14:52] VITALS: BP 134/61
[2017-05-29] MEDS ORDERED: CLOTRIMAZOLE 1% CREAM 30 GM TUBE TOP SCH (17:00)
[2017-05-29 20:00] VITALS: BP 117/64
[2017-05-29] MEDS: CLOTRIMAZOLE 1% CREAM 30 GM TUBE TOP SCH (20:13)
[2017-05-29] MEDS: QUETIAPINE FUMARATE 25 MG TABLET PO SCH (20:13)
[2017-05-29] MEDS: ATORVASTATIN 20 MG TABLET PO SCH (20:13)
[2017-05-30] MEDS: BLOOD SUGAR DIAGNOSTIC 1 EACH STRIP VI SCH ×4 (06:35→20:30)
[2017-05-30 08:00] VITALS: BP 148/74
[2017-05-30] MEDS: LINAGLIPTIN 5 MG TABLET PO SCH (08:10)
[2017-05-30] MEDS: PAROXETINE HCL 20 MG TABLET PO SCH (08:10)
[2017-05-30] MEDS: METOPROLOL TARTRATE 50 MG TABLET PO SCH ×2 (08:10→20:28)
[2017-05-30] MEDS: GABAPENTIN 100 MG CAPSULE PO SCH ×3 (08:10→16:13)
[2017-05-30] MEDS: CLOTRIMAZOLE 1% CREAM 30 GM TUBE TOP SCH ×2 (08:10→20:28)
[2017-05-30] MEDS: NITROFURANTOIN/NITROFURAN MAC 100 MG CAPSULE PO SCH ×2 (08:10→20:28)
[2017-05-30] MEDS: DOCUSATE SODIUM 100 MG CAPSULE PO SCH ×2 (08:10→20:27)
[2017-05-30] MEDS: FAMOTIDINE 20 MG TABLET PO SCH (08:10)
[2017-05-30] MEDS: Z GUARD REMEDY PASTE 57 GM TUBE TOP SCH ×2 (08:11→20:28)
[2017-05-30] MEDS: INSULIN REGULAR, HUMAN 300 UNIT/3 ML VIAL SQ PRN ×2 (10:46→16:24)
[2017-05-30 12:00] VITALS: BP 108/60
[2017-05-30 16:00] VITALS: BP 146/51
[2017-05-30 20:01] VITALS: BP 139/64
[2017-05-30] MEDS: ATORVASTATIN 20 MG TABLET PO SCH (20:28)
[2017-05-30] MEDS: QUETIAPINE FUMARATE 25 MG TABLET PO SCH (20:28)
[2017-05-31] MEDS: BLOOD SUGAR DIAGNOSTIC 1 EACH STRIP VI SCH ×4 (06:31→20:56)
[2017-05-31 07:39] VITALS: BP 147/57
[2017-05-31] MEDS: FAMOTIDINE 20 MG TABLET PO SCH (08:09)
[2017-05-31] MEDS: PAROXETINE HCL 20 MG TABLET PO SCH (08:09)
[2017-05-31] MEDS: NITROFURANTOIN/NITROFURAN MAC 100 MG CAPSULE PO SCH ×2 (08:09→20:49)
[2017-05-31] MEDS: LINAGLIPTIN 5 MG TABLET PO SCH (08:09)
[2017-05-31] MEDS: METOPROLOL TARTRATE 50 MG TABLET PO SCH ×2 (08:09→20:49)
[2017-05-31] MEDS: DOCUSATE SODIUM 100 MG CAPSULE PO SCH ×2 (08:09→20:48)
[2017-05-31] MEDS: GABAPENTIN 100 MG CAPSULE PO SCH ×4 (08:09→20:49)
[2017-05-31] MEDS: Z GUARD REMEDY PASTE 57 GM TUBE TOP SCH ×2 (08:11→20:51)
[2017-05-31] MEDS: CLOTRIMAZOLE 1% CREAM 30 GM TUBE TOP SCH ×2 (08:11→20:50)
[2017-05-31] MEDS: INSULIN REGULAR, HUMAN 300 UNIT/3 ML VIAL SQ PRN (10:55)
[2017-05-31 12:33] VITALS: BP 142/70
[2017-05-31 15:58] VITALS: BP 100/60
[2017-05-31 16:01] VITALS: BP 158/56
[2017-05-31 20:00] VITALS: BP 169/92
[2017-05-31] MEDS: ATORVASTATIN 20 MG TABLET PO SCH (20:48)
[2017-05-31] MEDS: QUETIAPINE FUMARATE 25 MG TABLET PO SCH (20:50)
[2017-06-01] MEDS: BLOOD SUGAR DIAGNOSTIC 1 EACH STRIP VI SCH ×4 (06:36→20:58)
[2017-06-01 07:30] VITALS: BP_SYST 152; BP_SYST 168; BP_DIAS 62; BP_DIAS 75
[2017-06-01] MEDS: DOCUSATE SODIUM 100 MG CAPSULE PO SCH ×2 (08:28→20:42)
[2017-06-01] MEDS: PAROXETINE HCL 10 MG TABLET PO SCH (08:29)
[2017-06-01] MEDS: FAMOTIDINE 20 MG TABLET PO SCH (08:29)
[2017-06-01] MEDS: METOPROLOL TARTRATE 50 MG TABLET PO SCH ×2 (08:29→20:47)
[2017-06-01] MEDS: NITROFURANTOIN/NITROFURAN MAC 100 MG CAPSULE PO SCH ×2 (08:29→20:47)
[2017-06-01] MEDS: GABAPENTIN 100 MG CAPSULE PO SCH ×4 (08:30→20:42)
[2017-06-01] MEDS: Z GUARD REMEDY PASTE 57 GM TUBE TOP SCH ×2 (08:30→20:58)
[2017-06-01] MEDS: CLOTRIMAZOLE 1% CREAM 30 GM TUBE TOP SCH ×2 (08:35→22:06)
[2017-06-01] MEDS: LINAGLIPTIN 5 MG TABLET PO SCH (08:42)
[2017-06-01] MEDS ORDERED: PAROXETINE HCL 20 MG TABLET PO SCH (09:00)
[2017-06-01 16:40] VITALS: BP 152/62
[2017-06-01] MEDS: INSULIN REGULAR, HUMAN 300 UNIT/3 ML VIAL SQ PRN ×2 (16:54→21:01)
[2017-06-01] MEDS: ATORVASTATIN 20 MG TABLET PO SCH (20:42)
[2017-06-01] MEDS: QUETIAPINE FUMARATE 25 MG TABLET PO SCH (20:47)
[2017-06-01 21:16] VITALS: BP 149/68
[2017-06-02] MEDS: BLOOD SUGAR DIAGNOSTIC 1 EACH STRIP VI SCH ×4 (06:45→21:00)
[2017-06-02 07:30] VITALS: BP 133/59
[2017-06-02 08:05] LABS: BASOPHILS # (AUTO) 0.1 K/uL (0.0-8.0); BASOPHILS % (AUTO) 0.7 % (0.0-2.0); EOSINOPHILS # (AUTO) 0.3 K/uL (0.0-0.7); EOSINOPHILS % (AUTO) 3.3 % (0.0-7.0); HEMATOCRIT 33.9 % (31.2-41.9); HEMOGLOBIN 11.4 g/dL (10.9-14.3); LYMPHOCYTES # (AUTO) 2.3 K/uL (20.0-40.0); LYMPHOCYTES % (AUTO) 24.2 % (20.5-51.5); MEAN CORPUSCULAR HEMOGLOBIN 30.3 uug (24.7-32.8); MEAN CORPUSCULAR HGB CONC 33 g/dL (32.3-35.6); MEAN CORPUSCULAR VOLUME 90.6 fL (75.5-95.3); MONOCYTES % (AUTO) 10.3 % (0.0-11.0); NEUTROPHILS # (AUTO) 5.8 K/uL (1.8-8.9); NEUTROPHILS % (AUTO) 61.5 % (38.5-71.5); PLATELET COUNT (AUTO) 247 K/uL (179-408); RED BLOOD CELL COUNT(AUTO) 3.75 MIL/uL (3.63-4.92); WHITE BLOOD COUNT (AUTO) 9.5 K/uL (3.8-11.8)
[2017-06-02 08:26] LABS: ALANINE AMINOTRANSFERASE 15 U/L (14-59); ALKALINE PHOSPHATASE 73 U/L (50-136); ASPARTATE AMINOTRANSFERASE 16 U/L (15-37); BILIRUBIN,TOTAL 0.4 mg/dL (0.2-1.0); CARBON DIOXIDE 32 mmol/L (21-32); CHLORIDE 104 mmol/L (98-107); CREATININE 1.5 mg/dL (0.6-1.3); GLUCOSE 126 mg/dL (74-106); MAGNESIUM 1.9 mg/dL (1.8-2.4); POTASSIUM 3.4 mmol/L (3.5-5.1); TOTAL PROTEIN, SERUM 6.8 g/dL (6.4-8.2); UREA NITROGEN, BLOOD 19 mg/dL (7-18)
[2017-06-02] MEDS: FAMOTIDINE 20 MG TABLET PO SCH (08:54)
[2017-06-02] MEDS: NITROFURANTOIN/NITROFURAN MAC 100 MG CAPSULE PO SCH (08:54)
[2017-06-02] MEDS: LINAGLIPTIN 5 MG TABLET PO SCH (08:54)
[2017-06-02] MEDS: DOCUSATE SODIUM 100 MG CAPSULE PO SCH ×2 (08:54→21:05)
[2017-06-02] MEDS: GABAPENTIN 100 MG CAPSULE PO SCH ×4 (08:55→21:05)
[2017-06-02] MEDS: PAROXETINE HCL 10 MG TABLET PO SCH (08:55)
[2017-06-02] MEDS: METOPROLOL TARTRATE 50 MG TABLET PO SCH ×2 (08:55→21:00)
[2017-06-02] MEDS: Z GUARD REMEDY PASTE 57 GM TUBE TOP SCH ×2 (08:56→21:06)
[2017-06-02] MEDS: CLOTRIMAZOLE 1% CREAM 30 GM TUBE TOP SCH ×2 (09:06→21:05)
[2017-06-02] MEDS ORDERED: POTASSIUM CHLORIDE 10 MEQ TAB.PRT.SR PO ONE (15:15)
[2017-06-02 16:02] VITALS: BP 129/81
[2017-06-02] MEDS: INSULIN REGULAR, HUMAN 300 UNIT/3 ML VIAL SQ PRN (17:26)
[2017-06-02 20:00] VITALS: BP 143/49
[2017-06-02] MEDS: ATORVASTATIN 20 MG TABLET PO SCH (21:05)
[2017-06-02] MEDS: QUETIAPINE FUMARATE 25 MG TABLET PO SCH (21:05)
[2017-06-03] MEDS: BLOOD SUGAR DIAGNOSTIC 1 EACH STRIP VI SCH ×4 (06:59→20:19)
[2017-06-03 07:30] VITALS: BP 150/70
[2017-06-03] MEDS: GLIMEPIRIDE 2 MG TABLET PO SCH (08:52)
[2017-06-03] MEDS: LINAGLIPTIN 5 MG TABLET PO SCH (09:26)
[2017-06-03] MEDS: CLOTRIMAZOLE 1% CREAM 30 GM TUBE TOP SCH ×2 (09:27→20:42)
[2017-06-03] MEDS: FAMOTIDINE 20 MG TABLET PO SCH (09:28)
[2017-06-03] MEDS: Z GUARD REMEDY PASTE 57 GM TUBE TOP SCH ×2 (09:28→20:43)
[2017-06-03] MEDS: ASPIRIN EC 81 MG TABLET.DR PO SCH (09:29)
[2017-06-03] MEDS: GABAPENTIN 100 MG CAPSULE PO SCH ×4 (09:29→20:12)
[2017-06-03] MEDS: DOCUSATE SODIUM 100 MG CAPSULE PO SCH ×2 (09:29→20:12)
[2017-06-03] MEDS: METOPROLOL TARTRATE 50 MG TABLET PO SCH ×2 (09:30→20:12)
[2017-06-03] MEDS: CYANOCOBALAMIN 1,000 MCG TABLET PO SCH (09:31)
[2017-06-03] MEDS: PAROXETINE HCL 10 MG TABLET PO SCH (09:31)
[2017-06-03] MEDS ORDERED: Z GUARD REMEDY PASTE 57 GM TUBE TOP PRN (11:15)
[2017-06-03 15:58] VITALS: BP 121/64
[2017-06-03 19:49] VITALS: BP 129/69
[2017-06-03] MEDS: QUETIAPINE FUMARATE 25 MG TABLET PO SCH (20:12)
[2017-06-04] MEDS: BLOOD SUGAR DIAGNOSTIC 1 EACH STRIP VI SCH ×4 (06:31→20:11)
[2017-06-04 07:30] VITALS: BP 163/57
[2017-06-04 07:55] LABS: CARBON DIOXIDE 30 mmol/L (21-32); CHLORIDE 106 mmol/L (98-107); CREATININE 1.3 mg/dL (0.6-1.3); GLUCOSE 141 mg/dL (74-106); MAGNESIUM 1.9 mg/dL (1.8-2.4); PHOSPHOROUS 3.1 mg/dL (2.5-4.9); POTASSIUM 3.5 mmol/L (3.5-5.1); UREA NITROGEN, BLOOD 19 mg/dL (7-18)
[2017-06-04 08:19] LABS: BASOPHILS # (AUTO) 0.1 K/uL (0.0-8.0); BASOPHILS % (AUTO) 0.7 % (0.0-2.0); EOSINOPHILS # (AUTO) 0.3 K/uL (0.0-0.7); HEMATOCRIT 34.9 % (31.2-41.9); HEMOGLOBIN 11.6 g/dL (10.9-14.3); LYMPHOCYTES # (AUTO) 1.5 K/uL (20.0-40.0); LYMPHOCYTES % (AUTO) 14.4 % (20.5-51.5); MEAN CORPUSCULAR HEMOGLOBIN 29.8 uug (24.7-32.8); MEAN CORPUSCULAR HGB CONC 33 g/dL (32.3-35.6); MONOCYTES % (AUTO) 9.5 % (0.0-11.0); NEUTROPHILS # (AUTO) 7.3 K/uL (1.8-8.9); NEUTROPHILS % (AUTO) 72.4 % (38.5-71.5); PLATELET COUNT (AUTO) 257 K/uL (179-408); RED BLOOD CELL COUNT(AUTO) 3.88 MIL/uL (3.63-4.92); WHITE BLOOD COUNT (AUTO) 10.1 K/uL (3.8-11.8)
[2017-06-04] MEDS: ASPIRIN EC 81 MG TABLET.DR PO SCH (09:11)
[2017-06-04] MEDS: GABAPENTIN 100 MG CAPSULE PO SCH ×4 (09:11→20:02)
[2017-06-04] MEDS: DOCUSATE SODIUM 100 MG CAPSULE PO SCH ×2 (09:11→20:02)
[2017-06-04] MEDS: LINAGLIPTIN 5 MG TABLET PO SCH (09:11)
[2017-06-04] MEDS: FAMOTIDINE 20 MG TABLET PO SCH (09:12)
[2017-06-04] MEDS: GLIMEPIRIDE 2 MG TABLET PO SCH (09:12)
[2017-06-04] MEDS: CYANOCOBALAMIN 1,000 MCG TABLET PO SCH (09:12)
[2017-06-04] MEDS: PAROXETINE HCL 10 MG TABLET PO SCH (09:12)
[2017-06-04] MEDS: METOPROLOL TARTRATE 50 MG TABLET PO SCH ×2 (09:13→20:14)
[2017-06-04] MEDS: Z GUARD REMEDY PASTE 57 GM TUBE TOP SCH ×2 (09:14→20:08)
[2017-06-04] MEDS: CLOTRIMAZOLE 1% CREAM 30 GM TUBE TOP SCH ×2 (09:14→20:08)
[2017-06-04] MEDS: INSULIN REGULAR, HUMAN 300 UNIT/3 ML VIAL SQ PRN (11:45)
[2017-06-04 20:28] VITALS: BP 142/66
[2017-06-04] MEDS ORDERED: QUETIAPINE FUMARATE 25 MG TABLET PO SCH (21:00)
[2017-06-04] MEDS ORDERED: QUETIAPINE FUMARATE 100 MG TABLET PO SCH ×2 (21:00)
[2017-06-05] MEDS: BLOOD SUGAR DIAGNOSTIC 1 EACH STRIP VI SCH ×3 (06:42→16:30)
[2017-06-05 07:30] VITALS: BP 149/85
[2017-06-05] MEDS: ASPIRIN EC 81 MG TABLET.DR PO SCH (09:00)
[2017-06-05] MEDS: GLIMEPIRIDE 2 MG TABLET PO SCH (09:00)
[2017-06-05] MEDS: Z GUARD REMEDY PASTE 57 GM TUBE TOP SCH (09:00)
[2017-06-05] MEDS: CYANOCOBALAMIN 1,000 MCG TABLET PO SCH (09:00)
[2017-06-05] MEDS: PAROXETINE HCL 10 MG TABLET PO SCH (09:00)
[2017-06-05] MEDS: CLOTRIMAZOLE 1% CREAM 30 GM TUBE TOP SCH (09:00)
[2017-06-05] MEDS: METOPROLOL TARTRATE 50 MG TABLET PO SCH (09:01)
[2017-06-05] MEDS: DOCUSATE SODIUM 100 MG CAPSULE PO SCH (09:01)
[2017-06-05] MEDS: FAMOTIDINE 20 MG TABLET PO SCH (09:01)
[2017-06-05] MEDS: LINAGLIPTIN 5 MG TABLET PO SCH (09:01)
[2017-06-05] MEDS: GABAPENTIN 100 MG CAPSULE PO SCH ×3 (09:01→16:44)
[2017-06-05] MEDS: INSULIN REGULAR, HUMAN 300 UNIT/3 ML VIAL SQ PRN (11:42)
[2017-06-05 15:17] VITALS: BP 156/96
== END 2017-06-05 17:00 | DRG 885 ==
LOC: GPSOV 17:45 → GPS 05-31 18:35
PROVIDERS: ADMIT Psychiatry & Neurology Psychiatry; ATTEND Internal Medicine
DX: F31.81 Bipolar II disorder (principal); E43 Unspecified severe protein-calorie malnutrition; N17.0 Acute kidney failure with tubular necrosis; B95.2 Enterococcus as the cause of diseases classified elsewhere; E11.65 Type 2 diabetes mellitus with hyperglycemia; D68.59 Other primary thrombophilia; E11.22 Type 2 diabetes mellitus with diabetic chronic kidney disease; D64.9 Anemia, unspecified; E66.01 Morbid (severe) obesity due to excess calories; N39.0 Urinary tract infection, site not specified; F03.90 Unspecified dementia, unspecified severity, without behavioral disturbance, psychotic disturbance, mood disturbance, and anxiety; I08.1 Rheumatic disorders of both mitral and tricuspid valves; F31.9 Bipolar disorder, unspecified; Z16.21 Resistance to vancomycin; Z68.37 Body mass index [BMI] 37.0-37.9, adult; E53.8 Deficiency of other specified B group vitamins; Z90.49 Acquired absence of other specified parts of digestive tract; Z74.09 Other reduced mobility; I13.10 Hypertensive heart and chronic kidney disease without heart failure, with stage 1 through stage 4 chronic kidney disease, or unspecified chronic kidney disease; N18.2 Chronic kidney disease, stage 2 (mild); F41.9 Anxiety disorder, unspecified; Z79.84 Long term (current) use of oral hypoglycemic drugs; Z87.01 Personal history of pneumonia (recurrent); Z79.899 Other long term (current) drug therapy
CPT/HCPCS: 36415; 83735; 84100; 85025; 87086; 87400; 97110; 97116; 97530; C1758; J1815